=== PATIENT | female | born 1950 | race Caucasian/White ===

== ENCOUNTER → 2021-06-14 13:05 | Outpatient (BNVA) | payer MEDICARE, OTHER, SELFPAY | PROVIDERS: PCP Psychiatry & Neurology Neurology; Visit Provider Psychiatry & Neurology Neurology | DX: G25.81 Restless legs syndrome (principal); G47.61 Periodic limb movement disorder; G54.2 Cervical root disorders, not elsewhere classified | CPT/HCPCS: 99212 ==

== ENCOUNTER → 2021-10-18 14:36 | Outpatient (BNVA) | payer MEDICARE, OTHER, SELFPAY | PROVIDERS: PCP Nurse Practitioner Adult Health; Visit Provider Nurse Practitioner Family | DX: G25.81 Restless legs syndrome (principal); G47.61 Periodic limb movement disorder; Z79.899 Other long term (current) drug therapy | CPT/HCPCS: 99212 ==

== ENCOUNTER → 2021-12-20 13:58 | Outpatient (BNVA) | payer MEDICARE, OTHER, SELFPAY | PROVIDERS: PCP Nurse Practitioner Adult Health; Visit Provider Nurse Practitioner Family | DX: G25.81 Restless legs syndrome (principal); G47.61 Periodic limb movement disorder | CPT/HCPCS: 99212 ==

== ENCOUNTER → 2022-07-17 08:21 | Outpatient (BNVA) | payer MEDICARE, OTHER, SELFPAY | PROVIDERS: PCP Nurse Practitioner Adult Health; Visit Provider Psychiatry & Neurology Neurology | DX: G25.81 Restless legs syndrome (principal); G47.61 Periodic limb movement disorder | CPT/HCPCS: 99212 ==

== ENCOUNTER 2023-07-25 09:00 | Outpatient (AMB) | payer MEDICARE, OTHER, SELFPAY ==
--- NOTE | 2023-07-25 09:04 | A.OFFVIS_ITS ---
Intake Vital Signs 07/25/23 09:05 Height 5 ft 3 in Weight 115 lb 8 oz BMI 20.5 BP 116/54 L Blood Pressure Location Lt brachial Position Sitting Respiration 16 Pulse 64 Pulse Source Palpation Intake Visit Reasons: 1 year f/u Periodic limb movement-CONF Intake Note: Pt presents to the office for a one year follow up for restless legs syndrome. Mailroom Personnel Required: No Allergies No Known Allergies Allergy (Verified 07/25/23 09:05) Medication List - Last Reconciled 07/25/23 by Alize Rios MD aspirin 81 mg PO DAILY atorvastatin 40 mg PO DAILY PRN bupropion HCl (Wellbutrin SR) 150 mg PO Q12H clopidogrel 75 mg PO DAILY escitalopram oxalate 10 mg PO TID ferrous fumarate (Ferretts) 325 mg PO DAILY gabapentin mg PO TID hyoscyamine sulfate (Levsin/SL) 0.125 mg sublingual insulin glargine (Lantus U-100 Insulin) 100 units subcut QAM insulin glargine U-300 conc (Toujeo SoloStar U-300 Insulin) units subcut metformin 500 mg PO BID mirtazapine 15 mg PO BEDTIME pantoprazole 40 mg PO BID repaglinide 0 mg PO ropinirole 0.5 mg (1/2 x 1 mg) PO TID 90 days ropinirole ER 2 mg orally; 1 tab qam and 2 tabs qhs 90 days umeclidinium-vilanterol 62.5-25 mcg/actuation (Anoro Ellipta) 1 ea inhalation DAILY HPI HPI Comments History of Present Illness Details 73y/o female patient presents for follow up of RLS. Requip 0.5mg qam and qhs and XR 2mg at 4pm. she has been having falls at night when she wakes up to use the bathroom . she feels like she is not fully awake, she also eats and does not remember during night time. she has sleep talking. she reports some twitching. she reports hypersomnolence and falls related to that . [facility] Medical History (Updated 07/25/23 @ 09:29 by Alize Rios MD) Falls frequently Cervicalgia Restless legs syndrome Periodic limb movement Back pain Hyperlipidemia Diabetes Depression COPD (chronic obstructive pulmonary disease) Surgical History (Updated 07/25/23 @ 09:17 by Louisa Valladares CMA) H/O angioplasty H/O laminectomy History of carpal tunnel surgery H/O shoulder surgery History of back surgery History of cholecystectomy Family History Father Cancer Mother Cancer Social History Alcohol intake: current Alcohol intake frequency: holidays/special occasions only Patient Tobacco Use Status: Former Tobacco user Quit Date: 11/15/2020 Substance Use Type: Marijuana Review of Systems ENT Reports Normal hearing present Neuro Reports Normal hearing present Physical Exam Vital Signs: Last Vital Signs Pulse 64 07/25/23 09:05 Resp 16 07/25/23 09:05 BP 116/54 L 07/25/23 09:05 BMI result Body Mass Index 20.5 Const General: cooperative and no acute distress Nutritional Appearance: average body habitus Orientation/consciousness: patient oriented x3 Limitations: ambulation with cane Resp Effort & Inspection: normal respiratory effort and able to speak in complete sentences Neuro General: patient oriented x3 and moves all extremities Cranial nerves: Yes Normal hearing present and Yes Ability to bilaterally rotate head present Cognition (Neuro): normal cognition Gait exam (Neuro): Antalgic gait present and Assistive device used (pt uses cane) Motor exam (neuro): 5/5 motor strength present throughout Psych Appearance: grossly normal Mental Status: mental status grossly normal Assessment & Plan Assessment & Plan (1) Restless legs syndrome: Code(s): G25.81 - Restless legs syndrome (2) Periodic limb movement: Code(s): G47.61 - Periodic limb movement disorder (3) Falls frequently: Comment: due to hypersomnolence related to dopamine agonists and gabapentin Code(s): R29.6 - Repeated falls Plan Decrease ropinirole 0.5 mg qama nd XR 2mg q 4 pm I will trial her on sinemet 25/100 qhs Decrease gabapentin 300mg qhs Medications: New carbidopa-levodopa 25-100 mg (Sinemet) 1 tab PO BEDTIME 30 tabs 6RF Changed From ropinirole ER 2 mg orally; 1 tab qam and 2 tabs qhs 90 days 270 tabs 6RF To ropinirole ER 2 mg qhs 90 days 90 tabs 6RF From gabapentin PO TID To gabapentin PO BEDTIME From ropinirole 6pm, 8am and as needed in the middle of the day 0.5 mg (1/2 x 1 mg) PO TID 90 days 135 tabs 3RF To ropinirole 0.5 mg (1/2 x 1 mg) PO QAM 45 tabs 3RF 90 days Coding Level of Care Code Est Pt Level 4 (26601) Diagnoses Restless legs syndrome G25.81 Periodic limb movement G47.61 Falls frequently R29.6
[2023-07-25 09:05] VITALS: BP 116/54; PULSE 64; RESP 16; BMI 20.5
== END 2023-07-25 09:35 | disposition home or self-care (01) ==
PROVIDERS: Visit Provider Psychiatry & Neurology Neurology
DX: G25.81 Restless legs syndrome (principal); G47.61 Periodic limb movement disorder; R29.6 Repeated falls
CPT/HCPCS: 99214

== ENCOUNTER → 2023-07-25 09:00 | Outpatient (BNVA) | payer MEDICARE, OTHER, SELFPAY | PROVIDERS: Visit Provider Psychiatry & Neurology Neurology | DX: G25.81 Restless legs syndrome (principal); G47.61 Periodic limb movement disorder; R29.6 Repeated falls | CPT/HCPCS: 99212 ==

== ENCOUNTER 2023-11-05 09:56 | Outpatient (AMB) | payer MEDICARE, OTHER, SELFPAY ==
--- NOTE | 2023-11-05 10:00 | A.OFFVIS_ITS ---
Vital Signs 11/05/23 10:01 Height 5 ft 3 in Weight 115 lb BMI 20.4 BP 112/60 Blood Pressure Location Rt brachial Position Sitting Respiration 16 Pulse 68 Pulse Source Palpation Intake Visit Reasons: 2 Month F/U - LVM w/add Intake Note: Pt presents tot he office for a 4 month follow up for RLS. [employer] Required: No Allergies No Known Allergies Allergy (Verified 11/05/23 10:00) HPI Comments Details: 73y/o female patient presents for follow up of RLS. Requip 0.5mg qam and qnoon nad sinemet 25/100 qhs , gabapentin 600mg qhs No falls Denies hypersomnolence during daytime PFSH Medical History Falls frequently Cervicalgia Restless legs syndrome Periodic limb movement Back pain Hyperlipidemia Diabetes Depression COPD (chronic obstructive pulmonary disease) Surgical History History of colon resection H/O angioplasty H/O laminectomy History of carpal tunnel surgery H/O shoulder surgery History of back surgery History of cholecystectomy Family History Father Cancer Mother Cancer Social History Alcohol intake: current Alcohol intake frequency: holidays/special occasions only Patient Tobacco Use Status: Former Tobacco user Substance Use Type: Marijuana Review of Systems ENT Reports Normal hearing present Neuro Reports Normal hearing present Physical Exam Vital Signs: Last Vital Signs Pulse 68 11/05/23 10:01 Resp 16 11/05/23 10:01 BP 112/60 11/05/23 10:01 BMI result Body Mass Index 20.4 Const General: cooperative and no acute distress Nutritional Appearance: average body habitus Orientation/consciousness: patient oriented x3 Limitations: ambulation with cane Resp Effort & Inspection: normal respiratory effort and able to speak in complete sentences Neuro General: patient oriented x3 and moves all extremities Cranial nerves: Yes Normal hearing present and Yes Ability to bilaterally rotate head present Cognition (Neuro): normal cognition Gait exam (Neuro): Antalgic gait present and Assistive device used (pt uses cane) Motor exam (neuro): 5/5 motor strength present throughout Psych Appearance: grossly normal Mental Status: mental status grossly normal Assessment & Plan Assessment & Plan (1) Restless legs syndrome: Code(s): G25.81 - Restless legs syndrome Category: Medical (2) Periodic limb movement: Code(s): G47.61 - Periodic limb movement disorder Category: Medical Plan ropinirole 0.5 mg qam and q noon ( consider decreasing to 0.25 mg 1/2 tab Bid) sinemet 25/100 qhs gabapentin 600mg qhs Medications: Changed From ropinirole 0.5 mg (1/2 x 1 mg) PO QAM 90 days 45 tabs 3RF To ropinirole 0.5 mg (1/2 x 1 mg) PO BID 90 days 90 tabs 3RF Discontinued ropinirole ER Discontinued Reason: Patient no longer taking 2 mg qhs 90 days 90 tabs 6RF Coding Level of Care Code Est Pt Level 4 (24252) Diagnoses Restless legs syndrome G25.81 Periodic limb movement G47.61
[2023-11-05 10:01] VITALS: BP 112/60; PULSE 68; RESP 16; BMI 20.4
== END 2023-11-05 10:29 | disposition home or self-care (01) ==
PROVIDERS: PCP Internal Medicine; Visit Provider Psychiatry & Neurology Neurology
DX: G25.81 Restless legs syndrome (principal); G47.61 Periodic limb movement disorder
CPT/HCPCS: 99214

== ENCOUNTER → 2023-11-05 09:56 | Outpatient (BNVA) | payer MEDICARE, OTHER, SELFPAY | PROVIDERS: PCP Internal Medicine; Visit Provider Psychiatry & Neurology Neurology | DX: G25.81 Restless legs syndrome (principal); G47.61 Periodic limb movement disorder; R29.6 Repeated falls | CPT/HCPCS: 99212 ==

== ENCOUNTER → 2024-04-06 13:55 | Outpatient (REF) | payer MEDICARE, OTHER, SELFPAY | LOC: HO.SL 13:55 | PROVIDERS: PCP Internal Medicine; Visit Provider Psychiatry & Neurology Neurology | DX: R06.83 Snoring (principal); G47.10 Hypersomnia, unspecified | CPT/HCPCS: 95806 ==

== ENCOUNTER → 2024-04-06 14:23 | Outpatient (BNV) | payer MEDICARE, OTHER, SELFPAY | PROVIDERS: PCP Internal Medicine; Visit Provider Psychiatry & Neurology Neurology | DX: R06.83 Snoring (principal); G47.10 Hypersomnia, unspecified | CPT/HCPCS: 95806 ==

== ENCOUNTER → 2024-06-02 20:30 | Outpatient (REF) | payer MEDICARE, OTHER, SELFPAY ==
--- OUTSIDE RECORDS SUMMARY | 2024-06-02 22:55 | XMS_ITS ---
Author Organization [facility] Address [address] [facility] [address] [place] [address] Care Team Providers Care Administrative Liaison Name Role Phone El Bor[place]o Primary Care Provider ZAHRA Rose Unavailable [phone] Allergies Allergen (clinical drug ingredient) Drug/Non Drug Allergy documented on EMR Reaction Allergy Type Onset Date Status codeine Codeine Sulfate Unknown Drug Allergy A ctive REASON FOR VISIT Bump on the Lt foot red/swollen and deeply cracked heels ready to bleed. Medications Medication SIG (Take, Route, Frequency, Duration) Notes Start Date End Date Status Doxycycline Monohydrate 100 MG 1 tablet Orally Twice a day for 14 days 01/13/2021 Not-Taking Doxycycline Monohydrate 100 MG 1 tablet Orally twice a day for 10 days 01/04/2023 Active Diclofenac Sodium 1 % 1 gm to the left 3 rd toe and plantar heels Externally two to four times a day for 30 days 01/04/2023 Active Aquaphor - apply to cracks on heels Externally one to two times a day for 30 days 01/04/2023 Active Lidocaine 4 % 1 application as needed Externally Three times a day for 14 days 10/12/2020 Not-Taking buPROPion HCl ER (XL) 150 MG 1 tablet in the morning Orally bid Active Atorvastatin Calcium 10 MG 1 tablet Orally Once a day Active Urea 20 % 1 application as needed to the right heel Externally Once a day for 30 days 10/04/2020 Not-Taking Aspirin 81 MG 1 tablet Orally Once a day Active Carbidopa-Levodopa 25-100 MG 1 tablet Orally Once a day Not-Taking Multivitamin Active metFORMIN HCl 500 MG 1 tablet with a eyad l Orally bid Active Lantus 100 UNIT/ML as directed Subcutaneous 18 units qhs Active Lexapro 10 MG 1 tablet Orally bid Active Vitamin D3 50 MCG (1999 UT) 1 tablet Orally Once a day Active Gabapentin 800 MG 1 tablet Orally Once a day 900MG Active rOPINIRole HCl 1 MG 1 tablet 1 to 3 hours before bedtime Orally 2 tab at night Active Pantoprazole Sodium 40 MG 1 tablet Orally Twice a day Active LORazepam Active rOPINIRole HCl ER 2 MG 1 tablet Orally Once a day Active ZyrTEC Allergy 10 MG 1 tablet Orally Onc e a day Active Problems Problem Type SNOMED Code ICD Code Onset Dates Problem Status W/U Status Risk Notes Problem 496194819 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 confirmed Vital Signs Weight 113.8 lbs 01/04/2023 Height 5ft 3in in 01/04/2023 BMI 20.16 kg/m2 01/04/2023 Heart Rate 63 /min 01/04/2023 Temperature 97.0 degrees Fahrenheit 01/05/20 23 Respiratory Rate 16 /min 01/04/2023 Encounters Encounter Location Date Provider Diagnosis [facility] [address] [facility] [address] [place] [address] 01/04/2023 ZAHRA RICHARDSON Onychia and paronychia of toe L03.039 ; Dactylitis due to spondyloarthritic disorder M46.90 and Fissure in skin of both feet R23.4 Assessments Encounter Date Diagnosis (ICD Code) Assessment Notes Treatment Notes Treatment Clinical Notes Section Notes 01/04/2023 Onychia and paronychia of toe (ICD-10 - L03.039) This is an outpatient visit for evaluation and management of an established patient with new issues, which required appropriate review of pertinent medical history, review of any previous imaging, review of all previous records, and examination and decision-making . Time was 30 minutes spent in review of all these facets including face to face discussion with the patient regarding my findings and in discussion of a current and future treatment plan. I recommended x-rays of the left 3rd toe. The patient refused. We discussed that she either has a retronychia or dactylitis of the toe. She has no fluctuance of the toe. I recommended we treat for both issues. RX for doxycycline 100 mg PO BID x 10 days sent to the patient's pharmacy. I reviewed side effects of the antibiotic. I also discussed dactylitis. She has similar problems with her hands. She has had surgery and injections in her hands in the past. She cannot take oral NSAIDs. SHe did not want an injection today. RX for diclofenac gel to apply to the left 3rd toe BID x 30 days. 01/04/2023 Dactylitis due to spondyloarthritic disorder (ICD-10 - M46.90) I explained her heel pain is due to compensation from the pain caused by her heel fissures. We discussed that There is inflammation in this area as well. I recommended she applies the diclofenac gel to the heels twice daily. I also recommended stretching exercises for the plantar fascia. I told the patient to avoid barefoot walking. 01/04/2023 Fissure in skin of both feet (ICD-10 - R23.4) We discussed the fissures form from dry skin caused by her poor circulation and the neuropathy. She is on gabapentin for the neuropathy. She had an ultrasound and is scheduled to follow up with Dr. Powell next week. I recommended a moitsurizer barrier cream instead of the keratolytic urea cream. RX Aquaphor ointment to apply to both heels daily until healed. She is in agreement with this plan. Plan Of Treatment Medication Medication Name Sig Start Date Stop Date Notes Doxycycline Monohydrate 100 MG 1 tablet Orally twice a day for 10 days 01/04/2023 Diclofenac Sodium 1 % 1 gm to the left 3 rd toe and plantar heels Externally two to four times a day for 30 days 01/04/2023 Aquaphor - apply to cracks on h eels Externally one to two times a day for 30 days 01/04/2023 Treatment Notes Assessment Notes Onychia and paronychia of toe This is an outpatient visit for evaluation and management of an established patient with new issues, which required appropriate review of pertinent medical history, review of any previous imaging, review of all previous records, and examination and decision-making. Time was 30 minutes spent in review of all these facets including face to face discussion with the patient regarding my findings and in discussion of a current and future treatment plan. I recommended x-rays of the left 3rd toe. The patient refused. We discussed that she either has a retronychia or dactylitis of the toe. She has no fluctuance of the toe. I recommended we treat for both issues. RX for doxycycline 100 mg PO BID x 10 days sent to the patient's pharmacy. I reviewed side effects of the antibiotic. I also discussed dactylitis. She has similar problems with her hands. She has had surgery and injections in her hands in the past. She cannot take oral NSAIDs. SHe did not want an injection today. RX for diclofenac gel to apply to the left 3rd toe BID x 30 days. Dactylitis due to spondyloarthritic diso rder I explained her heel pain is due to compensation from the pain caused by her heel fissures. We discussed that There is inflammation in this area as well. I recommended she applies the diclofenac gel to the heels twice daily. I also recommended stretching exercises for the plantar fascia. I told the patient to avoid barefoot walking. Fissure in skin of both feet We discusse d the fissures form from dry skin caused by her poor circulation and the neuropathy. She is on gabapentin for the neuropathy. She had an ultrasound and is scheduled to follow up with Dr. Powell next week. I recommended a moitsurizer barrier cream instead of the keratolytic urea cream. RX Aquaphor ointment to apply to both heels daily until healed. She is in agreement with this plan. Next Appt Details Follow Up: prn, Reason: Progress Notes * Meek VALLEShanaOB:1950 (72 yo F)Acc No.[id number]:01/04/2023 Progress Notes Patient:?Tiarra Valle Provider:?Zahra Richardson DPM :1950???Age:72 Y???Sex:Female D ate:01/04/2023 Address:[address] [place] [address] , [place], [id number] Pcp:El Borrego Subjective: * Chief Complaints: * ???Bump on the Lt foot red/s wollen and deeply cracked heels ready to bleed. * HPI: ???Constitutional:? This 72 y/o female returns to my office with a complaint of a painful red swollen left 3rd toe, painful cracks in the heels, and bilateral heel pain. She states the toe issue started about 3 weeks ago. She denies any trauma or injury to the toe. She states it is very painful to the touch, and she cannot wear closed toed shoes. She denies any drainage from the toe. She states the redness has stayed localized to the toe. She was also diagnosed with peripheral neuropathy and cannot tolerate certain shoes. She states the cracks in her heels have been getting worse. She was using the urea ointment without improvement. She also used Neosporin on the area which seemed to help more. She states the heels have been painful when walking. She has not tried anything for this issue. She has no other foot complaints this visit. * ROS:?GENERAL: Pt denies nausea, fever, vomiting, chills, or shortness of breath. Pt in NAD. ALLERGY: patient denies any new allergy HEME/ONC: patient denies any bleeding or clotting disorders CARDIOLOGY: pt denies chest pain, palpitations LUNGS: pt denies shortness of breath ABDOMEN: patient denies any bloating, abdominal pain, or swelling MUSCULOSKELETAL: See HPI, hand and leg pain SKIN: see HPI, otherwise no lesions, rash or itching NEURO: No persistent headache, patient has bilateral peripheral neuropathy PSYCH: patient denies any current anxiety or depression The remainder of the review of systems is noncontributory. * Medical History:? * Surgical History:?gastric by pass- no NSAIDS back surgery right shoulder surgery gallbladder sugery carpal tunnel surgery right hip replacement left achilles tendon repair neck fusion * Hospitalization/Major Diagno stic Procedure:? (boy) 1988vaginal delivery (girl) 1989gastric bypass back surgery right hip replacement cholecystectomy * Family History:?1 son(s) , 1 daughter(s) . .? family history of diabetes and cancer. * Social History:?Tobacco: no Alcohol: rarely smokes marijuana. * Medications:?TakingZyrTEC Al lergy 10 MG Tablet 1 tablet Orally Once a day Gabapentin 800 MG Tablet 1 tablet Orally Once a day , Notes to Pharmacist: 900MGLORazepam rOPINIRole HCl ER 2 MG Tablet Extended Release 24 Hour 1 tablet Orally Once a day rOPINIRole HCl 1 MG Tablet 1 tablet 1 to 3 hours before bedtime Orally 2 tab at night Pantoprazole Sodium 40 MG Tablet Delayed Release 1 tablet Orally Twice a day Multivitamin metFORMIN HCl 500 MG Tablet 1 tablet with a meal Orally bid Lantus 100 UNIT/ML Solution as directed Subcutaneous , Notes to Pharmacist: 18 units qhsLexapro 10 MG Tablet 1 tablet Orally bid Vitamin D3 50 MCG (2000 UT) Tablet 1 tablet Orally Once a day buPROPion HCl ER (XL) 150 MG Tablet Extended Release 24 Hour 1 tablet in the morning Orally bid Atorvastatin Calcium 10 MG Tablet 1 tablet Orally Once a day Aspirin 81 MG Tablet Delayed Release 1 tablet Orally Once a day Taking ZyrTEC Allergy 10 MG Tablet 1 tablet Orally Once a day Taking Gabapentin 800 MG Tablet 1 tablet Orally Once a day , Notes to Pharmacist: 900MGTaking LORazepam Taking rOPINIRole HCl ER 2 MG Tablet Extended Release 24 Hour 1 tablet Orally Once a day Taking rOPINIRole HCl 1 MG Tablet 1 tablet 1 to 3 hours before bedtime Orally 2 tab at night Taking Pantoprazole Sodium 40 MG Tablet Delayed Release 1 tablet Orally Twice a day Taking Multivitamin Taking metFORMIN HCl 500 MG Tablet 1 tablet with a meal Orally bid Taking Lantus 100 UNIT/ML Solution as directed Subcutaneous , Notes to Pharmacist: 18 units qhsTaking Lexapro 10 MG Tablet 1 tablet Orally bid Taking Vitamin D3 50 MCG (2000 UT) Tablet 1 tablet Orally Once a day Taking buPROPion HCl ER (XL) 150 MG Tablet Extended Release 24 Hour 1 tablet in the morning Orally bid Taking Atorvastatin Calcium 10 MG Tablet 1 tablet Orally Once a day Taking Aspirin 81 MG Tablet Delayed Release 1 tablet Orally Once a day Pfa-MsuvmeHczdlftof-Eqhvftzk 25-100 MG Tablet 1 tablet Orally Once a day Urea 20 % Cream 1 application as needed to the right heel Externally Once a day Lidocaine 4 % Cream 1 application as needed Externally Three times a day Doxycycline Monohydrate 100 MG Tablet 1 tablet Orally Twice a day Medication List reviewed and reconciled with the patientNot-Taking Carbidopa-Levodopa 25-100 MG Tablet 1 tablet Orally Once a day Not-Taking Urea 20 % Cream 1 application as needed to the right heel Externally Once a day Not-Taking Lidocaine 4 % Cream 1 application as needed Externally Three times a day Not- Taking Doxycycline Monohydrate 100 MG Tablet 1 tablet Orally Twice a day Medication List reviewed and reconciled with the patient * Allergies:?Codeine Sulfateno [Allergies Verified] Objective: * Vitals:?Wt:113.8lbs, Ht: 5ft 3in, BMI:20.16Index, HR:63/min, Temp:97.0F, RR:16/min, Ht-cm: 160.02, Wt-k.62 kg. * Examination: ???General Examination: ???GENERAL: Patient appears well nourished, with NAD. ?VASCULAR: Dorsalis pedis pulses are 1/4 bilaterally and Posterior tibial pulses are 1/4 bilaterally. Capillary filling time within normal limits the digits. No pallor on elevation or rubor on dependency. No hair growth. Each foot temperature is within normal limits. ?NEUROLOGICAL: Sharp/dull sensation intact left, diminished right, protective sensation intact 10/10 with 5.07 [place] Teodoro left, 5/10 right, vibratory sensation with tuning fork diminished to the tibial tuberosity bilaterally, position sense intact left to the tibial tuberosity, diminished right. ?ORTHOPEDIC: Good muscle strength 4+/5 of all flexors and extensors left, 4/5 right. Dorsi flexion of ankle ,0 degrees, plantar flexion WNL. No muscle atrophy. Pain on palpation and ROM of the distal interphalangeal joint of the left 3rd toe. Pain on heel compression and on palpation of the plantar aspect bilaterally. ?DERMATOLOGICAL: Hyperkeratosis lateral plantar right and left heel with shallow fissures. Edema and erythema of the proximal nail bed of the left 3rd toe without any drainage, acute pain on palpation. Normal skin temperature, normal skin turgor. ?SHOES: sandals. Assessment: * Assessment: 1.?Onychia and paronychia of toe - L03.039 (Primary)?2.?Dactylitis due to spondyloarthritic disorder - M46.90?3.?Fissure in skin of both feet - R23.4? Plan: * Treatment: 2.?Dactylitis due to spondyl oarthritic disorder? Start Diclofenac Sodium Gel, 1 %, 1 gm to the left 3rd toe and plantar heels, Externally, two to four times a day, 30 days, 60, Refills 2.?? Notes: I explained her heel pain is due to compensation from the pain caused by her heel fissures. We discussed that There is inflammation in this area as well. I recommended she applies the diclofenac gel to the heels twice daily. I also recommended stretching exercises for the plantar fascia. I told the patient to avoid barefoot walking.?? 3.?Fissure in skin of both f eet? Start Aquaphor Ointment, -, apply to cracks on heels, Externally, one to two times a day, 30 days, 60, Refills 2.?? Notes: We discussed the fissures form from dry skin caused by her poor circulation and the neuropathy. She is on gabapentin for the neuropathy. She had an ultrasound and is scheduled to follow up with Dr. Powell next week. I recommended a moitsurizer barrier cream instead of the keratolytic urea cream. RX Aquaphor ointment to apply to both heels daily until healed. She is in agreement with this plan.?? * Procedure Codes:? * Follow Up:?prn * Billing Information: * Visit Code:? 55789 Office Visit, Est Pt., Level 4. * Procedure Codes:? * Sign off status: Completed true * Provider:?Zahra Richardson DPM Date:? 01/04/2023 Generated for Karen nicholson/Saray/Reese on:?06/02/2024 10:54 PM EST History and Physical Notes * HPI (History of Present Illness) Category Sub-Category Detail Notes Category Not es Constitutional This 72 y/o f sam returns to my office with a complaint of a painful red swollen left 3rd toe, painful cracks in the heels, and bilateral heel pain. She states the toe issue started about 3 weeks ago. She denies any trauma or injury to the toe. She states it is very painful to the touch, and she cannot wear closed toed shoes. She denies any drainage from the toe. She states the redness has stayed localized to the toe. She was also diagnosed with peripheral neuropathy and cannot tolerate certain shoes. She states the cracks in her heels have been getting worse. She was using the urea ointment without improvement. She also used Neosporin on the area which seemed to help more. She states the heels have been painful when walking. She has not tried anything for this issue. She has no other foot complaints this visit. Examination Category Sub-Category Detail Notes Category Not es General Examination GENERAL: Patient appears well nourished, with NAD. VASCULAR: Dorsalis pedis pulses are 1/4 bilaterally and Posterior tibial pulses are 1/4 bilaterally. Capillary filling time within normal limits the digits. No pallor on elevation or rubor on dependency. No hair growth. Each foot temperature is within normal limits. NEUROLOGICAL: Sharp/dull sensation intact left, diminished right, protective sensation intact 10/10 with 5.07 [place] Teodoro left, 5/10 right, vibratory sensation with tuning fork diminished to the tibial tuberosity bilaterally, position sense intact left to the tibial tuberosity, diminished right. ORTHOPEDIC: Good muscle strength 4+/5 of all flexors and extensors left, 4/5 right. Dorsi flexion of ankle ,0 degrees, plantar flexion WNL. No muscle atrophy. Pain on palpation and ROM of the distal interphalangeal joint of the left 3rd toe. Pain on heel compression and on palpation of the plantar aspect bilaterally. DERMATOLOGICAL: Hyperkeratosis lateral plantar right and left heel with shallow fissures. Edema and erythema of the proximal nail bed of the left 3rd toe without any drainage, acute pain on palpation. Normal skin temperature, normal skin turgor. SHOES: sandals"
--- OUTSIDE RECORDS SUMMARY | 2024-06-02 22:55 | XMS_ITS | Clinical Summary ---
Author Organization Unknown Care Team Providers Care Director Translational Name Role Phone KAMINI TRIMMER TAILER, COLEMAN Unavailable Unavailab franko COYNE PT, MICHAEL Unavailable Unavailable SPAFFORD OT, TEJINDER Unavailable Unavailable Payers Payer Name Policy Type Policy Number Effective Date Expira tion Date MEDICARE.NGS.PDGM [id number] Problems Condition Name Condition Details Condition Category Status Onset Date Resolution Date Last Treatment Date Treating Clinician Comments ENCOUNTER FOR OTHER ORTHOPEDIC AFTERCARE Active 2020-05 00:00: 00 ARTHRODESIS STATUS Active 2020-05 00:00: 00 SPINAL STENOSIS, CERVICAL REGION Active 2020-05 00:00: 00 ESSENTIAL (PRIMARY) HYPERTENSION Active 05-27 00:00: 00 TYPE 2 DIABETES MELLITUS WITHOUT COMPLICATION S Active 05-27 00:00: 00 LONGTERM (CURRENT) USE OF INSULIN Active 05-27 00:00: 00 SU[employer]OR [employer] (CURRENT) USE OF ORAL HYPOGLYCEMIC DRUGS Active 05-27 00:00: 00 LONGTERM (CURRENT) USE OF ANTITHROMBOT ICS/ANTIPLAT ELETS Active 05-27 00:00: 00 Allergies, Adverse Reactions, Alerts Allergy Name Allergy Type Status Severity Reaction(s) Onset Date Inactive Date Treating Clinician Comments NO KNOWN ALLERGIES Propensity to adverse reactions Active 2020-05 11:16: 58 Medications Ordered Medication Name Filled Medication Name Start Date Stop Date Current Medication? Ordering Clinician Indication Dosage Frequency Signature (SIG) Comments Components urea 20 % topical cream 02-08 00:00: 00 Yes [id number] DIRECTED Per instruc tions NEEDED HEEL ONCE A DAY Per instructio ns NEEDED HEEL ONCE A DAY (route: topical) Med Classific ation: Dermatolo gical pantoprazol e 40 mg tablet,anette yed release 02-15 00:00: 00 Yes [id number] DIRECTED Per instruc tions TWICE DAILY Per instructio ns TWICE DAILY (route: oral) Med Classific ation: Gastroint estinal Therapy Agents escitalopra m 10 mg tablet 9-08 00:00: 00 Yes [id number] DIRECTED Per instruc tions DAILY Per instructio ns DAILY (route: oral) Med Classific ation: Central Nervous System Agents ropinirole ER 4 mg tablet,exte nded release 24 hr 2020-05 0-06 00:00: 00 Yes [id number] DIRECTED Per instruc tions DAILY Per instructio ns DAILY (route: oral) Med Classific ation: Central Nervous System Agents metformin 500 mg tablet 8-06 00:00: 00 Yes [id number] DIRECTED Per instruc tions 2 TIMES DAILY Per instructio ns 2 TIMES DAILY (route: oral) Med Classific ation: Endocrine atorvastati n 10 mg tablet 8-16 00:00: 00 Yes [id number] DIRECTED Per instruc tions DAILY Per instructio ns DAILY (route: oral) Med Classific ation: Cardiovas cular Therapy Agents bupropion HCl SR 150 mg tablet,12 hr sustained-r elease 7-21 00:00: 00 Yes [id number] DIRECTED Per instruc tions DAILY Per instructio ns DAILY (route: oral) Med Classific ation: Central Nervous System Agents gabapentin 300 mg capsule 2020-05 0-05 00:00: 00 Yes [id number] DIRECTED Per instruc tions TWICE DAILY EVERY NIGHT AT BEDTIME Per instructio ns TWICE DAILY EVERY NIGHT AT BEDTIME (route: oral) Med Classific ation: Central Nervous System Agents amoxicillin 500 mg capsule 2020-05 0-05 00:00: 00 Yes [id number] DIRECTED Per instruc tions DAILY Per instructio ns DAILY (route: oral) Med Classific ation: Anti-Infe ctive Agents clopidogrel 75 mg tablet 9-15 00:00: 00 Yes [id number] DIRECTED Per instruc tions EVERY DAY Per instructio ns EVERY DAY (route: oral) Med Classific ation: Hematolog ical Agents Lantus Solostar U-100 Insulin 100 unit/mL (3 mL) subcutaneou s pen 01-12 00:00: 00 Yes [id number] DIRECTED Per instruc tions DAILY Per instructio ns DAILY (route: subcutaneo us) Med Classific ation: Endocrine Neupro 2 mg/24 hour transdermal 24 hour patch 2020-05 005 00:00: 00 Yes [id number] DIRECTED Per instruc tions ONCE DAILY Per instructio ns ONCE DAILY (route: transderma l) Med Classific ation: Central Nervous System Agents BD Maylin 2nd Gen Pen Needle 32 gauge x /32 01-26 00:00: 00 Yes [id number] DIRECTED Per instruc tions ONCE DAILY Per instructio ns ONCE DAILY (route: miscellane ous) Med Classific ation: Medical Supplies and Durable Medical Equipment (DME) Vital Signs Vital Name Observation Time Observation Value Commen ts Temperature 2021-05-08 07:36:00.000 97.5 [degF] Temperature 2021-05-05 09:40:00.000 97.9 [degF] Temperature 2021-04-26 14:40:00.000 97.1 [degF] Temperature 2021-04-26 09:29:00.000 98.6 [degF] Temperature 2021-04-19 13:06:00.000 97.3 [degF] Temperature 2021-04-17 08:21:00.000 97.9 [degF] Temperature 2021-04-12 11:09:00.000 97.5 [degF] Temperature 2021-04-11 09:35:00.000 97.8 [degF] Temperature 2021-04-06 15:57:00.000 97.2 [degF] Temperature 2021-04-05 11:49:00.000 98.2 [degF] Temperature 2021-03-29 07:38:00.000 97.7 [degF] Temperature 2021-03-28 12:55:00.000 97.4 [degF] Temperature 2021-03-27 10:48:00.000 97.5 [degF] Height 2021-03-27 10:48:00.000 63 [in_us] Pulse 2021-05-08 07:36:00.000 77 /min Pulse 2021-05-05 09:40:00.000 81 /min Pulse 2021-04-26 14:40:00.000 80 /min Pulse 2021-04-26 09:29:00.000 75 /min Pulse 2021-04-19 13:06:00.000 76 /min Pulse 2021-04-17 08:21:00.000 80 /min Pulse 2021-04-12 11:09:00.000 75 /min Pulse 2021-04-11 09:35:00.000 86 /min Pulse 2021-04-06 15:57:00.000 76 /min Pulse 2021-04-05 11:49:00.000 72 /min Pulse 2021-03-29 07:38:00.000 70 /min Pulse 2021-03-28 12:55:00.000 70 /min Pulse 2021-03-27 10:48:00.000 68 /min O2 Saturation (%) 2021-05-08 07:36:00.000 97 % O2 Saturation (%) 2021-04-19 13:06:00.000 97 % O2 Saturation (%) 2021-04-17 08:21:00.000 97 % O2 Saturation (%) 2021-04-12 11:09:00.000 97 % O2 Saturation (%) 2021-04-06 15:57:00.000 98 % O2 Saturation (%) 2021-03-29 07:38:00.000 97 % O2 Saturation (%) 2021-03-28 12:55:00.000 98 % Respirations 2021-05-08 07:36:00.000 16 /min Respirations 2021-05-05 09:40:00.000 18 /min Respirations 2021-04-26 14:40:00.000 18 /min Respirations 2021-04-26 09:29:00.000 18 /min Respirations 2021-04-19 13:06:00.000 18 /min Respirations 2021-04-17 08:21:00.000 18 /min Respirations 2021-04-12 11:09:00.000 18 /min Respirations 2021-04-11 09:35:00.000 18 /min Respirations 2021-04-06 15:57:00.000 18 /min Respirations 2021-04-05 11:49:00.000 18 /min Respirations 2021-03-29 07:38:00.000 18 /min Respirations 2021-03-28 12:55:00.000 16 /min Respirations 2021-03-27 10:48:00.000 18 /min Weight (lbs) 2021-03-27 10:48:00.000 161 [lb_av] Systolic Blood Pressure 2021-05-08 07:36:00.000 130 mm [Hg] Systolic Blood Pressure 2021-05-05 09:40:00.000 136 mm [Hg] Systolic Blood Pressure 2021-04-26 14:40:00.000 128 mm [Hg] Systolic Blood Pressure 2021-04-26 09:29:00.000 128 mm [Hg] Systolic Blood Pressure 2021-04-19 13:06:00.000 130 mm [Hg] Systolic Blood Pressure 2021-04-17 08:21:00.000 114 mm [Hg] Systolic Blood Pressure 2021-04-12 11:09:00.000 112 mm [Hg] Systolic Blood Pressure 2021-04-11 09:35:00.000 104 mm [Hg] Systolic Blood Pressure 2021-04-06 15:57:00.000 130 mm [Hg] Systolic Blood Pressure 2021-04-05 11:49:00.000 116 mm [Hg] Systolic Blood Pressure 2021-03-29 07:38:00.000 134 mm [Hg] Systolic Blood Pressure 2021-03-28 12:55:00.000 125 mm [Hg] Systolic Blood Pressure 2021-03-27 10:48:00.000 130 mm [Hg] Diastolic Blood Pressure 2021-05-08 07:36:00.000 70 mm [Hg] Diastolic Blood Pressure 2021-05-05 09:40:00.000 74 mm [Hg] Diastolic Blood Pressure 2021-04-26 14:40:00.000 68 mm [Hg] Diastolic Blood Pressure 2021-04-26 09:29:00.000 62 mm [Hg] Diastolic Blood Pressure 2021-04-19 13:06:00.000 72 mm [Hg] Diastolic Blood Pressure 2021-04-17 08:21:00.000 66 mm [Hg] Diastolic Blood Pressure 2021-04-12 11:09:00.000 60 mm [Hg] Diastolic Blood Pressure 2021-04-11 09:35:00.000 52 mm [Hg] Diastolic Blood Pressure 2021-04-06 15:57:00.000 68 mm [Hg] Diastolic Blood Pressure 2021-04-05 11:49:00.000 56 mm [Hg] Diastolic Blood Pressure 2021-03-29 07:38:00.000 62 mm [Hg] Diastolic Blood Pressure 2021-03-28 12:55:00.000 60 mm [Hg] Diastolic Blood Pressure 2021-03-27 10:48:00.000 64 mm [Hg] Plan of Treatment Planned Activity Planned Date Details Comments Future Scheduled Test AGENCY MAY PERFORM A RESUMPTION OF CARE VISIT FOLLOWING ANY HOSPITAL ADMISSION. PHYSICAL THERAPY TO EVALUATE, ASSESS AND MONITOR, PROVIDE SKILLED THERAPEUTIC INTERVENTION, ACTIVITY, EDUCATION, AND TRAINING TO ADDRESS: [code = AGENCY MAY PERFORM A RESUMPTION OF CARE VISIT FOLLOWING ANY HOSPITAL ADMISSION. PHYSICAL THERAPY TO EVALUATE, ASSESS AND MONITOR, PROVIDE SKILLED THERAPEUTIC INTERVENTION, ACTIVITY, EDUCATION, AND TRAINING TO ADDRESS:] Future Scheduled Test TRANSFER T RAINING (PT) [code = TRANSFER TRAINING (PT)] Future Scheduled Test GAIT TRAIN ING (PT) [code = GAIT TRAINING (PT)] Future Scheduled Test NEUROMUSCU LAR RE-EDUCATION / BALANCE RETRAINING (PT) [code = NEUROMUSCULAR RE-EDUCATION / BALANCE RETRAINING (PT)] Future Scheduled Test THERAPEUTI C EXERCISES (PT) [code = THERAPEUTIC EXERCISES (PT)] Future Scheduled Test ENERGY CON SERVATION (PT) [code = ENERGY CONSERVATION (PT)] Future Scheduled Test ORTHOPEDIC SURGICAL AFTERCARE (PT) MAY TEACH PATIENT APPLICATION OF CRYOTHERAPY FOR PAIN AND/OR SWELLING UP TO 20 MIN AT A TIME OVER INCISION/JOINT [code = ORTHOPEDIC SURGICAL AFTERCARE (PT) MAY TEACH PATIENT APPLICATION OF CRYOTHERAPY FOR PAIN AND/OR SWELLING UP TO 20 MIN AT A TIME OVER INCISION/JOINT] Future Scheduled Test CERVICAL S PINE LAMINECTOMY / FUSION SELF-MANAGEMENT (PT) [code = CERVICAL SPINE LAMINECTOMY / FUSION SELF-MANAGEMENT (PT)] Future Scheduled Test IDENTIFY F ALL RISK FACTORS AND ESTABLISH HOME EXERCISE PROGRAM TO MINIMIZE FALL RISK (PT) [code = IDENTIFY FALL RISK FACTORS AND ESTABLISH HOME EXERCISE PROGRAM TO MINIMIZE FALL RISK (PT)] Future Scheduled Test PAIN MANAG EMENT (PT) [code = PAIN MANAGEMENT (PT)] Future Scheduled Test PHYSICAL T HERAPY TO INSTRUCT PATIENT/CAREGIVER ON RISK FOR HOSPITALIZATION, TEACH SIGNS AND SYMPTOMS THAT PUT PATIENT AT RISK, WHEN TO NOTIFY CLINICIAN OF COMPLICATIONS/DECLINE, AND WHEN TO CALL 911. PHYSICAL THERAPY TO INSTRUCT PATIENT/CAREGIVER ON: SIGNS AND SYMPTOMS TO BE ON ALERT FOR EARLY INTERVENTION, PRIOR TO NEEDING EMERGENCY SERVICES CALL US FIRST TO KEEP PRE PRESS OPERATOR SYMPTOM REPORT FOR VISIBLE REFERENCE NOTIFY CLINICIAN/PHYSICIAN FOR DECLINE IN STATUS WHEN AND HOW TO CALL HOME HEALTH AGENCY FACILITATE PHYSICIAN FOLLOW UP APPOINTMENT IDENTIFY SOCIOECONOMIC CONCERNS AND MAKE APPROPRIATE REFERRAL NEEDED [code = PHYSICAL THERAPY TO INSTRUCT PATIENT/CAREGIVER ON RISK FOR HOSPITALIZATION, TEACH SIGNS AND SYMPTOMS THAT PUT PATIENT AT RISK, WHEN TO NOTIFY CLINICIAN OF COMPLICATIONS/DECLINE, AND WHEN TO CALL 911. PHYSICAL THERAPY TO INSTRUCT PATIENT/CAREGIVER ON: SIGNS AND SYMPTOMS TO BE ON ALERT FOR EARLY INTERVENTION, PRIOR TO NEEDING EMERGENCY SERVICES CALL US FIRST TO KEEP PRE PRESS OPERATOR SYMPTOM REPORT FOR VISIBLE REFERENCE NOTIFY CLINICIAN/PHYSICIAN FOR DECLINE IN STATUS WHEN AND HOW TO CALL HOME HEALTH AGENCY FACILITATE PHYSICIAN FOLLOW UP APPOINTMENT IDENTIFY SOCIOECONOMIC CONCERNS AND MAKE APPROPRIATE REFERRAL NEEDED] Future Scheduled Test AGENCY MAY PERFORM A RESUMPTION OF CARE VISIT FOLLOWING ANY HOSPITAL ADMISSION. OCCUPATIONAL THERAPY TO EVALUATE, ASSESS, AND MONITOR, PROVIDE SKILLED THERAPEUTIC INTERVENTION, ACTIVITY, EDUCATION, AND TRAINING TO ADDRESS; BATHING/SHOWERING (OT) TOILETING (OT) DRESSING (OT) MODIFIED NEIL INDEX (OT) MEAL PREPARATION AND CLEANUP (OT) [code = AGENCY MAY PERFORM A RESUMPTION OF CARE VISIT FOLLOWING ANY HOSPITAL ADMISSION. OCCUPATIONAL THERAPY TO EVALUATE, ASSESS, AND MONITOR, PROVIDE SKILLED THERAPEUTIC INTERVENTION, ACTIVITY, EDUCATION, AND TRAINING TO ADDRESS; BATHING/SHOWERING (OT) TOILETING (OT) DRESSING (OT) MODIFIED NEIL INDEX (OT) MEAL PREPARATION AND CLEANUP (OT)] Goal 2021-05-08 Patient Goal - I WANT TO WA LK PAIN FREE Goal Provider Goal - Goal Provider Goal - PATIENT WILL DEMO INDEP PERFORMANCE OF HOUSEHOLD TRANSFERS WITH FWW USE IN 4 WEEKS AND WITH SPC USE IN 8 WEEKS TO PROMOTE IMPROVED FUNCTIONAL MOBILITY Goal Provider Goal - PATIENT WILL DEMO INDEP PERFORMANCE OF HOUSEHOLD GAIT WITH FWW USE IN 4 WEEKS AND WITH SPC USE INCLUDING STAIRS IN 8 WEEKS TO ALLOW SAFE NAVIGATION THROUGHOUT HOME ENVIRONMENT Goal Provider Goal - PATIENT WILL DEMO IMPROVED TUG SCORE TO 44 SECONDS AND 19 TINETTI SCORE IN 8 WEEKS TO PROMOTE IMPROVED BALANCE INPUT INTEGRATION Goal Provider Goal - Goal Provider Goal - PATIENT WILL DEMO INDEP USE OF PACING AND BREATHING TECHNIQUES FOR CONDITION MANAGEMENT IN 4 WEEKS Goal Provider Goal - PATIENT WILL DEMONSTRATE NORMAL HEALING FOLLOWING SURGERY WITH NO COMPLICATIONS BY DISCHARGE. Goal Provider Goal - PT GOAL: PATIENT WILL DEMONSTRATE OPTIMAL OUTCOMES INCLUDING DECREASED PAIN WITH NO COMPLICATIONS FOLLOWING CERVICAL SPINE LAMINECTOMY / FUSION BY DISCHARGE. Goal Provider Goal - PATIENT/CAREGIVER WILL DEMONSTRATE ADHERENCE TO FALL REDUCTION SELF MANAGEMENT TO MINIMIZE FALL RISK BY DISCHARGE. Goal Provider Goal - PT GOAL: PATIENT/CAREGIVER WILL VERBALIZE UNDERSTANDING OF PAIN MANAGEMENT BY DISCHARGE. Goal Provider Goal - PATIENT/CAREGIVER WILL VERBALIZE UNDERSTANDING OF SIGNS AND SYMPTOMS THAT PUT THE PATIENT AT RISK FOR HOSPITALIZATION, WHEN TO NOTIFY THERAPIST/NURSE OF COMPLICATIONS/DECLINE AND WHEN TO CALL 911. Goal Provider Goal - OT STG: PATIENT WILL COMPLETE SHOWER/BATHING TASKS WITH MOD A WITHIN 2 WEEKS OT LTG: PATIENT WILL DEMONSTRATE IMPROVED ABILITY TO PERFORM BATHING/SHOWERING FROM MAX A TO INDEPENDENT WITHIN 8 WEEKS OT STG: PATIENT WILL COMPLETE SHOWER TRANSFERS WITH MIN A WITHIN 2 WEEKS OT LTG: PATIENT WILL DEMONSTRATE IMPROVED ABILITY TO PERFORM BATH/SHOWER TRANSFER FROM MOD A TO INDEPENDENT WITHIN 8 WEEKS OT STG: PATIENT WILL COMPLETE TOJLETING TASKS WITH MOD A WITHIN 2 WEEKS OT LTG: PATIENT WILL DEMONSTRATE IMPROVED ABILITY TO PERFORM TOILET HYGIENE FROM MAX A TO INDEPENDENT WITHIN 8 WEEKS OT STG: PATIENT WILLCOMPLETE TOILET TRANSFERS WITH MIN A WITHIN 2 WEEKS OT LTG: PATIENT WILL DEMONSTRATE IMPROVED ABILITY TO PERFORM TOILET TRANSFER FROM MOD A TO INDEPENDENT WITHIN 8 WEEKS OT STG: PATIENT WILL COMPLETE UB DRESSING TASKS WITH MOD A WITHIN 2 WEEKS OT LTG: PATIENT WILL DEMONSTRATE IMPROVED ABILITY TO PERFORM UPPER BODY DRESSING INCLUDING ITEM RETRIEVAL FROM MAX A TO INDEPENDENT WITHIN 8 WEEKS OT STG: PATIENT WILLCOMPLETE LB DRESSING TASKS WITH MOD A WITHIN 2WEEKZ OT LTG: PATIENT WILL DEMONSTRATE IMPROVED ABILITY TO PERFORM LOWER BODY DRESSING INCLUDING ITEM RETRIEVAL FROM MAX A TO INDEPENDENT WITHIN 8 WEEKS OT STG: PATIENT WILL DEMONSTRATE IMPROVEX MBI SCORE OF 76 WITHIN 2 WEEKS. OT LTG: PATIENT WILL DEMONSTRATE IMPROVED INDEPENDENCE WITH ACTIVITIES OF DAILY LIVING (ADL) SKILLS EVIDENCED BY AN IMPROVEMENT IN MODIFIED NEIL INDEX SCORE FROM 53 TO 100 INDICATING DECREASED DEPENDENCY ON CAREGIVER ASSISTANCE WITHIN 8 WEEKS OT STG: PATIENT WILL DEMONSTRATE ABILITY TO COMPLETE SIMPLE MEAL PREP WITH MOD A WITHIN 2 WEEKS OT LTG: PATIENT WILL DEMONSTRATE THE ABILITY TO COMPLETE MEAL PREPARATION AND CLEANUP FROM MAX A TO MIN A WITHIN 8 WEEKS Reason for Visit INDEPENDENT IN THE COMMUNITY Encounters Start Date/Time End Date/Time Encounter Type Admission Type Attending [facility] Care Department Encounter ID Discharge Date Discharge Status Discharge Condition Discharge Reason Percent Goals Met 2021-03-27 00:00:00 2021-05-08 00:00:00 Outpatient NEW ADMISSION COYNEMICHAEL CABRERA [facility] [id number] 2021-05-08 00:00:00 DISCHARGE TO HOME OR SELF CARE INDEPENDEN T IN THE COMMUNITY HH OR PAL- GOALS MET 93.75
--- OUTSIDE RECORDS SUMMARY | 2024-06-02 22:55 | XMS_ITS | Data Portability ---
Author Organization [facility] [place], [employer] Address [address] [place] [address] [place] [address] Care Team Providers Care Timber Feller Name Role Phone COLEMAN SUÁREZ Referring Provider Unavailab le COLEMAN SUÁREZ Primary Care Provider Assessment Encounter Date Assessment Date Assessment LastModified by Organization Details LastModified Time 09/08/2020 09/08/2020 IMPRESSION: Restless leg syndrome. Worsening gait imbalance but without falls. Concern about augmentation of RLS symptoms from levodopa. Augmentation is a well-known phenomenon with levodopa and restless leg syndrome where the restlessness symptoms become more severe and began occurring earlier in the day with protracted usage of levodopa. Symptoms may also extend to previously not involved limbs. The patient wondered if augmentation was inevitable from levodopa usage. She wondered if it was reversible. I did not know. After she left I researched the issue. There is a 2006 article by a respected expert in movement disorders, Medardo Manriquez. (https://www.ct bi.nlm.nih.gov/ pmc/articles/PM N9684295/) He reports that there are ? estimates? that augmentation eventually occurs with levodopa treatment in over 80% of patients in his experience, augmentation resolves within a week after his continuing the associated medication but reappears with reintroduction, sometimes more quickly than it appeared initially. He also notes that augmentation is not solely a property of levodopa as it had originally been thought but also happens with dopamine agonist such as ropinirole. He suggests that rotation among medications is the best way to handle this. He states that (in 2006) there are no good estimates on the time duration necessary during a rotation before going back to the original offending medication for there to be a chance that augmentation does not immediately reappear. He states that 3 months ? drug holiday? is what he uses with his patient population. A more recent article suggests that gradual withdrawal rather than sudden withdrawal of medication associated with augmentation is better tolerated (https://www.[facility].nlm.nih.gov/ pmc/articles/PM A9326343/) Before I had this knowledge, I suggested that we add a new medication, pramipexole extended release formulation for different reasons then the rotation reasons discussed above. There is some thought in the literature that pramipexole extended release has less tiredness side effect. She notes that she has had gastric bypass and has been told that extended release formulations in general do not work as extended release after gastric bypass of the type that she has had. The medications tend to work as immediate release. We decided on a trial of pramipexole extended release nevertheless. At follow-up I will introduce the idea of drug rotation more generally. We also discussed the alternatives to levodopa and dopamine agonists: Gabapentin, clonazepam and opiates. She would not want an opiate. We discussed that both gabapentin and clonazepam could have tiredness and that gabapentin at least and possibly clonazepam could worsened gait instability. [email or web address] Not available 09/08/2020 20:00:53 Plan of Treatment Reminders Order Date Submit Date Provider Last Modified By Organization Details Last Modified Time Details Appointments None recorded. Lab None recorded. Referral None recorded. Procedures None recorded. Surgeries None recorded. Imaging None recorded. Medication Orders pramipexole ER 0.75 mg tablet,exte nded release 24 hr 2020 021 [facility]/Pharmacy #[id number], [address] [place] [address], [place], [address], 13:17:06 Patient TargetsNo targets recorded. Patient Instructions Encounter Date Encounter Id Patient Instructions Last Modified By Organization Details Last Modified Time 09/08/2020 [id number] She had previously wanted to follow-up in the office he causes of gait imbalance. She has subsequently changed her mind and states she just wants to follow-up by telemedicine in the near future. Given the continuing coronavirus epidemic I cannot disagree. There remain no signs of Parkinsons disease on her telemedicine exam and there have been no signs of parkinsonism on previous in office neurological exams. She has history of iron deficiency, on iron replacement. Ferritin is normal July 2018. I defer to primary care for any future monitoring of iron that may be indicated. mic Not available 09/08/2020 19:59:03 Reason for Referral None Reported. Medical Equipment None Reported. Medications Name Sig Start Date Stop Date Status Note LastModified by Organization Details LastModified Time amoxicillin 500 mg capsule TAKE 4 CAPSULES BY MOUTH 1 HOUR PRIOR TO DENTAL APPOINTMENT active Not Available Not Available Not Available metformin 500 mg tablet TAKE 1 TABLET BY MOUTH TWICE A DAY WITH MEALS active Not Available Not Available No t Available bupropion HCl SR 150 mg tablet,12 hr sustained-re lease TAKE 1 TABLET BY MOUTH TWICE A DAY active Not Available Not Available No t Available ropinirole 1 mg tablet TAKE 2 TABLETS BY MOUTH AT BEDTIME, AND A THIRD IF NEEDED active Not Available Not Available No t Available atorvastatin 10 mg tablet TAKE 1 TABLET BY MOUTH EVERY DAY active Not Available Not Available No t Available urea 20 % topical cream APPLY 1 APPLICATION NEEDED TO THE RIGHT HEEL ONCE A DAY active Not Available Not Available N ot Available FreeStyle Lancets 28 gauge USE TO TEST BLOOD SUGAR TWICE A DAY active Not Available Not Available Not Available lorazepam 0.5 mg tablet TAKE 1 2 TABLETS BY MOUTH 30 MINUTES PRIOR TO PROCEDURE active Not Available Not Available No t Available doxycycline monohydrate 100 mg capsule active Not Available Not Available Not Available pantoprazole 40 mg tablet,delay ed release TAKE 1 TABLET BY MOUTH TWICE A DAY active Not Available Not Available No t Available hyoscyamine sulfate 0.125 mg tablet TAKE 4 TABS DIRECTED X 1 DAY BRING TO RADIOLOOGY EXAM *N/C active Not Available Not Available No t Available hyoscyamine 0.125 mg sublingual tablet TAKE 2 4 TABLETS BY MOUTH PER RADIOLOGY PROTOCOL active Not Available Not Available No t Available gabapentin 100 mg capsule active Not Available Not Available Not Available albuterol sulfate HFA 90 mcg/actuatio n aerosol inhaler TAKE 2 PUFFS BY MOUTH EVERY 6 HOURS NEEDED FOR WHEEZE active Not Available Not Available No t Available carbidopa 25 mg-levodopa 100 mg tablet TAKE 1/2 TAB 9AM X1WEEK, 1TAB 9AM X1WEEK, 1 TAB 9AM 1/2TAB 5PM X1WEEK, THEN 1TAB 9AM 1 5PM active Not Available Not Available No t Available repaglinide 1 mg tablet TAKE 1 2 TABLETS BY MOUTH EVERY DAY WITH EVENING MEAL active Not Available Not Available No t Available escitalopram 10 mg tablet TAKE 1 TABLET BY MOUTH TWICE A DAY active Not Available Not Available No t Available cyclobenzapr ine 5 mg tablet TAKE 1 TABLET (5 MG TOTAL) BY MOUTH NIGHTLY AT BEDTIME NEEDED. active Not Available Not Available No t Available hydrocodone 5 mg-acetamino phen 300 mg tablet TAKE 1 TABLET BY MOUTH EVERY 12 HOURS FOR PAIN *NOT COVERED* active Not Available Not Available No t Available FreeStyle Lite Strips USE ONE STRIP TO TEST BLOOD SUGAR ONE TO TWO TIMES DAILY DIRECTED active Not Available Not Available Not Available Lantus Solostar U-100 Insulin 100 unit/mL (3 mL) subcutaneous pen INJECT 7 UNITS UNDER THE SKIN DAILY. active Not Available Not Available No t Available pramipexole ER 0.75 mg tablet,exten ded release 24 hr 1 tablet 7 PM. May take a second tablet noon time if the 7 PM tablet does not make you tired 2020 active Not Available Not Available Not Avai lable BD Ultra-Fine Maylin Pen Needle 32 gauge x 5/32 USE ONCE DAILY DIRECTED active Not Available Not Available No t Available Baqsimi 3 mg/actuation nasal spray USE DIRECTED FOR SEVERE HYPOGLYCEMI A active Not Available Not Available No t Available Vitals None Recorded Social History None recorded. Functional Status None recorded. Mental Status None recorded. Family History Nothing Reported. Medical History No medical history recorded. Gynecological HistoryNo gynecological history recorded. Obstetrics History GPAL:G 0 P 0 0 0 0 Past Encounters Encounter ID Performer Location Encounter Start Date Encounter Closed Date Diagnosis/Indication Diagnosis SNOMED-CT Code Diagnosis ICD10 Code Diagnosis Note [id number] Isak Collazo MD [facility] [address] [place] [address] [place] [address] 09/08/2020 12:37:24 09/12/2020 15:51:44 Restless legs 25210591 G25.81 We are making only one change: Addition of pramipexol e ER 0.75 mg at 7 PM, and if there is no tiredness, an additional dose at noontime. This medication is at your pharmacy. For restless leg syndrome, carbidopa/ levodopa dosing as follows: 9 AM 1 tablet, 5 PM 1 tablet ropinirole 1 mg tablet dosing as follows: (NEW since July 2020) 11 AM: One half tablet together with a cup of coffee 5 PM: One half tablet together with a cup of coffee 15 minutes before afrryme27- midnight: 2 full tablets Middle of the night as needed: One full tablet If you are on your feet most of the day and not anticipati ng sitting down, it is just fine to skip the ropinirole at 11 AM. If you are on your feet during the evening all the way until bedtime, it is just fine to skip the 5 PM ropinirole . Follow-up in 1 month, in the office for reassessme nt context worsening restless legs Abnormal gait 96487646 R 26.81 Health Concerns Section Related Observation LastModified by Organization Detai ls LastModified Time None Recorded Concern Status LastModified by Organization Details LastModified Time None Recorded Advance Directives Directive None Recorded Payers Encounter Date Sequence Insurance Name Policy Number Policy Pantoja Covered Member ID Pantoja Member ID Guarantor Name 09/08/2020 1 [place]ICARE [place]: [employer] Tiarra Salcedo [id number] Tiarra Salcedo 09/08/2020 2 [facility] (MEDICARE SUPPLEMENT) Tiarra Salcedo [id number] Tiarra Salcedo Notes Date Note Type Note Provider Name and Address Organization Details Recorded Time 09/08/2020 text/html Since August 09, 2020 neurology follow-up encounter, she has added an extra half tablet of ropinirole 1 mg at 11 AM with a cup of coffee. She does not like the idea of a cup of coffee solving the problem of the tiredness with ropinirole. She continues to have breakthrough restless legs with sitting starting 11 AM-1 PM lasting until her 5 PM carbidopa/levodopa dose. She often just keeps moving and avoid sitting but if she has to sit she takes an extra half dose of carbidopa/levodopa. She again has breakthrough in the evening starting ~7:30 PM until bedtime, sometime 10 PM-midnight. When it is too intense, she takes an extra half ropinirole dose. She is very apprehensive about the potential of augmentation effect of carbidopa levodopa. She reports no falls. Presenting symptomatology is reviewed from initial neurology consultation October 24, 2017: Many years ago, she began having abnormal sensations in her lower extremities, a restless feeling in her knees and ankles like I wanted to punch. Them, which would come on later in the day if she were sitting or lying down and get better with walking. She also had jerking of her legs. Jeff his leg syndrome was diagnosed and ropinirole helped for many years, 0.5 mg tablets, 3-4 tablets 2 hours before bedtime, without side effects. She noticed at some point afterwards, she noticed similar symptoms earlier in the day if she was on a long car ride or at a conference sitting for a long time. This was adequately addressed by 1 or 2 tablets over ropinirole 0.5 mg. Sometime later, but still in the early , she had sleep study when restless legs syndrome was diagnosed. (she wonders how one can do that when she is sleeping. The precise diagnosis of abnormal leg movements when sleeping his periodic leg movements of sleep but this is thought very closely related to restless leg syndrome before waking. Both are treated with the same medications.) More recently, 4 tablets of her farm advisor in the evening and/or 2 tablets during the day stopped working. Primary care tried pramipexole and this didnt help. She is scared to go higher on the ropinirole leading to neurology consultation. She has had no problems with walkingaside from history or problems relating to right total hip replacement and more recent left hip bursitis that is being treated medically. She has no problems with stiffness, tremor or fine movements of her fingers her feet. Isak Collazo MD [address] [place] [address] [place], [address], [facility] 09/08/2020 20:02:31 OBGyn Episode No OBEpisode recorded.
--- OUTSIDE RECORDS SUMMARY | 2024-06-02 22:55 | XMS_ITS | Patient Health Record ---
Author Organization [facility] Address [address] [facility] [address] [place] [place] [address] Care Team Providers Care Public Health Nutritionist Name Role Phone [place] Primary Care Provider Unavailabl e Allergies Allergen (clinical drug ingredient) Drug/Non Drug Allergy documented on EMR Reaction Allergy Type Onset Date Status codeine Codeine Sulfate Unknown Drug Allergy A ctive Reason For Referral No Information Medications Medication SIG (Take, Route, Frequency, Duration) Notes Start Date End Date Status Doxycycline Monohydrate 100 MG 1 tablet Orally twice a day for 10 days 01/04/2023 Active Diclofenac Sodium 1 % 1 gm to the left 3 rd toe and plantar heels Externally two to four times a day for 30 days 01/04/2023 Active Lantus 100 UNIT/ML as directed Subcutaneous 18 units qhs Active Multivitamin Active Doxycycline Monohydrate 100 MG 1 tablet Orally Twice a day for 14 days 01/13/2021 Not-Taking metFORMIN HCl 500 MG 1 tablet with a eyad l Orally bid Active ZyrTEC Allergy 10 MG 1 tablet Orally Onc e a day Active buPROPion HCl ER (XL) 150 MG 1 tablet in the morning Orally bid Active Gabapentin 800 MG 1 tablet Orally Once a day 900MG Active Atorvastatin Calcium 10 MG 1 tablet Orally Once a day Active Aquaphor - apply to cracks on heels Externally one to two times a day for 30 days 01/04/2023 Active Lexapro 10 MG 1 tablet Orally bid Active Vitamin D3 50 MCG (1999 UT) 1 tablet Orally Once a day Active rOPINIRole HCl 1 MG 1 tablet 1 to 3 hours before bedtime Orally 2 tab at night Active Urea 20 % 1 application as needed to the right heel Externally Once a day for 30 days 10/04/2020 Not-Taking Pantoprazole Sodium 40 MG 1 tablet Orally Twice a day Active Lidocaine 4 % 1 application as needed Externally Three times a day for 14 days 10/12/2020 Not-Taking LORazepam Active Aspirin 81 MG 1 tablet Orally Once a day Active rOPINIRole HCl ER 2 MG 1 tablet Orally Once a day Active Carbidopa-Levodopa 25-100 MG 1 tablet Orally Once a day Not-Taking Problems Problem Type SNOMED Code ICD Code Onset Dates Problem Status W/U Status Risk Notes Problem [id number] Type 2 diabetes mellitus with other diabetic neurological complication (E11.49) Active confirmed Problem [id number] 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 [address] [place] [address] [id number] Tiarra Salcedo Self - patient is the insured Medical (General) History Medical History History ICD Code anxiety Controlled type 2 diabetes m ellitus with mild nonproliferative retinopathy of left eye with long-term current use of insulin GERD Right hip replacement Gastric bypass Restless leg syndrome Smoker Melanoma Major depressive disorder recurrent epis ode with anxious distress osteopenia of left forearm Hyperlidemia associated with type 2 diab etes mellitus Centrilobular emphysema + COVID 04/2022 COVID vaccinated X 4 (Ember) Surgical History Surgery Date(Month/Year) gastric bypass- no NSAIDS back surgery right shoulder surgery gallbladder sugery carpal tunnel surgery right hip replacement left achilles tendon repair neck fusion Hospitalization History Reason Date(Month/Year) cholecystectomy right hip replacement back surgery gastric bypass vaginal delivery (girl) 1989 (boy) 1987
== END ==
LOC: HO.SL 20:30
PROVIDERS: PCP Internal Medicine; Visit Provider Psychiatry & Neurology Neurology
DX: G47.10 Hypersomnia, unspecified (principal); R06.83 Snoring
CPT/HCPCS: 95810

== ENCOUNTER → 2024-06-02 22:44 | Outpatient (BNV) | payer MEDICARE, OTHER, SELFPAY | PROVIDERS: PCP Internal Medicine; Visit Provider Psychiatry & Neurology Neurology | DX: G47.10 Hypersomnia, unspecified (principal); R06.83 Snoring | CPT/HCPCS: 95810 ==

== ENCOUNTER 2024-11-04 10:53 | Outpatient (AMB) | payer MEDICARE, OTHER, SELFPAY ==
--- NOTE | 2024-11-04 11:08 | MHC.OFFVIS ---
Vital Signs 11/04/24 11:09 Height 5 ft 3 in Weight 114 lb BMI 20.2 BP 110/68 Blood Pressure Location Rt brachial Position Sitting Intake Visit Reasons: Follow up Intake Note: Patient presents for restless leg syndrome Allergies No Known Allergies Allergy (Verified 11/04/24 11:10) Medication List - Last Reconciled 11/04/24 by Alize Rios MD aspirin 81 mg PO DAILY atorvastatin 40 mg PO DAILY PRN bupropion HCl SR (Wellbutrin SR) 150 mg PO Q12H clopidogrel 75 mg PO DAILY escitalopram oxalate 20 mg PO ONCE ferrous fumarate (Ferretts) 325 mg PO DAILY gabapentin 300 mg PO BEDTIME hyoscyamine sulfate (Levsin/SL) 0.125 mg sublingual insulin glargine (Lantus U-100 Insulin) 100 units subcut QAM insulin glargine U-300 conc (Toujeo SoloStar U-300 Insulin) units subcut metformin 500 mg PO BID pantoprazole 40 mg PO BID repaglinide 0 mg PO ropinirole 0.5 mg PO BID 90 days umeclidinium-vilanterol 62.5-25 mcg/actuation (Anoro Ellipta) 1 ea inhalation DAILY HPI Comments Details: 74y/o female patient presents for follow up of RLS.she stopped carbidopa /levodopa and changed Requip 0.5mg qam and qnoon 1 mg qhs , gabapentin ( 100mg qam qnoon 3 tabs qhs )she stopped lorazepam . she had a fall Jun 2024 - slipped on the ice .Fractured her femur and right hip. Denies hypersomnolence during daytime [facility] Medical History Hypersomnia Snoring Falls frequently Cervicalgia Restless legs syndrome Periodic limb movement Back pain Hyperlipidemia Diabetes Depression COPD (chronic obstructive pulmonary disease) Surgical History History of colon resection H/O angioplasty H/O laminectomy History of carpal tunnel surgery H/O shoulder surgery History of back surgery History of cholecystectomy Family History Father Cancer Mother Cancer Social History Alcohol intake: current Alcohol intake frequency: holidays/special occasions only Patient Tobacco Use Status: Former Tobacco user Substance Use Type: Marijuana Review of Systems ENT Reports Normal hearing present Neuro Reports Normal hearing present Physical Exam Vital Signs: Last Vital Signs BP 110/68 11/04/24 11:09 BMI result Body Mass Index 20.2 Const General: cooperative and no acute distress Nutritional Appearance: average body habitus Orientation/consciousness: patient oriented x3 Limitations: ambulation with cane Resp Effort & Inspection: normal respiratory effort and able to speak in complete sentences Neuro General: patient oriented x3 and moves all extremities Cranial nerves: Yes Normal hearing present and Yes Ability to bilaterally rotate head present Cognition (Neuro): normal cognition Gait exam (Neuro): Antalgic gait present and Assistive device used (pt uses cane) Motor exam (neuro): 5/5 motor strength present throughout Psych Appearance: grossly normal Mental Status: mental status grossly normal Assessment & Plan Assessment & Plan (1) Restless legs syndrome: Code(s): G25.81 - Restless legs syndrome Category: Medical (2) Periodic limb movement: Code(s): G47.61 - Periodic limb movement disorder Category: Medical Plan ropinirole 0.5 mg qam and q noon add extra dose in even as needed 1mg qhs gabapentin 100 mg qam qnoon 3 tabs qhs Medications: New ropinirole 1 qam 1 qnoon 1 in juan jose as needed 0.5 mg PO TID 270 tabs 6RF ropinirole administer 1-3 hours before bedtime 1 mg PO BEDTIME 90 tabs 6RF Discontinued ropinirole Discontinued Reason: Doctor's Order 0.5 mg PO BID 90 days 180 tabs 3RF Coding Level of Care Code Est Pt Level 4 (63496) Complex EM visit Add On G2211 Diagnoses Restless legs syndrome G25.81 Periodic limb movement G47.61
[2024-11-04 11:09] VITALS: BP 110/68; BMI 20.2
--- OUTSIDE RECORDS SUMMARY | 2024-11-04 12:23 | XMS_ITS | Encounter Summary ---
Author Organization [facility] Address [address] [place] [address] Care Team Providers Care Preschool Program Director Name Role Phone Blayne Alexandra Primary Care Provider [phone] Encounter Details Date Type Department Care Team (Late st Contact Info) Description 08/29/2020 Orders Only [facility] Interventional Radiology [address] [place] [address] Nerissa Manuel MD [address] [place] [address] [phone] Social History Tobacco Use Types Packs/Day Years Used Date Smoking Tobacco: Former Cigarettes 0.8 45 0 06/24/1975 - 06/24/2020 Smokeless Tobacco: Never Comments:max was 2ppd. perio ds of quitting Alcohol Use Standard Drinks/Week Comments Not Currently 0 (1 standard drink = 0.6 oz pur e alcohol) Comments Unknown Sex and Gender Information Value Date Recorded Sex Assigned at Female 08/03/2020 8:00 AM EST Legal Sex Female 12:44 PM EST Gender Identity Female 08/03/2020 8:00 AM EST Sexual Orientation Straight 08/03/2020 8: 00 AM EST documented as of this encounter Plan of Treatment Not on file documented as of this encounter Visit Diagnoses Not on filedocumented in this encounter Care Teams Preschool Program Director Relationship Specialty Start Date End Date Blayne Alexandra [address] [place] [address] PCP - General 08/03/20 documented as of this encounter
== END 2024-11-04 11:35 | disposition home or self-care (01) ==
LOC: HO.HSMS 10:54
PROVIDERS: PCP Internal Medicine; Visit Provider Psychiatry & Neurology Neurology
DX: G25.81 Restless legs syndrome (principal); G47.61 Periodic limb movement disorder
CPT/HCPCS: 99214; G2211

== ENCOUNTER → 2024-11-04 10:53 | Outpatient (BNVA) | payer MEDICARE, OTHER, SELFPAY | PROVIDERS: PCP Internal Medicine; Visit Provider Psychiatry & Neurology Neurology | DX: G25.81 Restless legs syndrome (principal); G47.61 Periodic limb movement disorder | CPT/HCPCS: 99212 ==

== ENCOUNTER 2025-05-10 08:49 | Outpatient (AMB) | payer MEDICARE, OTHER, SELFPAY ==
--- NOTE | 2025-05-10 08:53 | A.OFFVIS_ITS ---
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 Accompanied by: Spouse Allergies No Known Allergies Allergy (Verified 05/10/25 08:54) Medication List - Last Reconciled 05/10/25 by Alize Rios MD amoxicillin 1,000 mg PO Q12H aspirin 81 mg PO DAILY atorvastatin 40 mg PO DAILY PRN bupropion HCl SR (Wellbutrin SR) 150 mg PO Q12H calcium phosphate-vitamin D3 250 mg calcium- 250 unit tabs PO carvedilol 3.125 mg PO BID cetirizine (Allergy Relief (cetirizine)) 10 mg PO DAILY PRN cholecalciferol (vitamin D3) mcg PO escitalopram oxalate 20 mg PO ONCE ferrous fumarate (Ferretts) 325 mg PO DAILY [id number] 100-62.5-25 mcg (Trelegy Ellipta) 1 inh inhalation Q24H gabapentin 300 mg PO BEDTIME gabapentin 300 mg PO TID insulin glargine (Lantus U-100 Insulin) 100 units subcut QAM insulin glargine U-300 conc (Toujeo SoloStar U-300 Insulin) units subcut mecobalamin (vitamin B12) 1,000 mcg PO DAILY melatonin 3 mg PO BEDTIME PRN metformin 500 mg PO BID multivitamin 1 tab PO DAILY pantoprazole 40 mg PO BID repaglinide 0 mg PO rivaroxaban (Xarelto) 2.5 mg PO BID ropinirole 1 mg PO BEDTIME ropinirole 0.5 mg PO TID sacubitril-valsartan 24-26 mg (Entresto) 1 tab PO BID HPI Comments Details: 74y/o female patient presents for follow up of RLS. Requip 0.5mg qam and qnoon 1 mg qhs , gabapentin ( 100mg qam 100 q evening qnoon 3 tabs qhs )she stopped lorazepam . she had a fall Jun 2024 -no falls since then Has daytime somnolence - takes 30 min naps some days she gets 6-7 hrs of sleep. [facility] Medical History Hypersomnia Snoring Falls frequently Cervicalgia Restless legs syndrome Periodic limb movement Back pain Hyperlipidemia Diabetes Depression COPD (chronic obstructive pulmonary disease) Surgical History History of colon resection H/O angioplasty H/O laminectomy History of carpal tunnel surgery H/O shoulder surgery History of back surgery History of cholecystectomy Family History Father Cancer Mother Cancer Social History Alcohol intake: current Alcohol intake frequency: holidays/special occasions only Patient Tobacco Use Status: Former Tobacco user Substance Use Type: Marijuana Review of Systems ENT Reports Normal hearing present Neuro Reports Normal hearing present Physical Exam Vital Signs: Last Vital Signs Pulse 54 05/10/25 08:54 BP 118/64 05/10/25 08:54 Pulse Ox 100 05/10/25 08:54 Oxygen Delivery Method Room Air 05/10/25 08:54 BMI result Body Mass Index 19.9 Const General: cooperative and no acute distress Nutritional Appearance: average body habitus Orientation/consciousness: patient oriented x3 Limitations: ambulation with cane Resp Effort & Inspection: normal respiratory effort and able to speak in complete sentences Neuro General: patient oriented x3 and moves all extremities Cranial nerves: Yes Normal hearing present and Yes Ability to bilaterally rotate head present Cognition (Neuro): normal cognition Gait exam (Neuro): Antalgic gait present Motor exam (neuro): 5/5 motor strength present throughout Psych Appearance: grossly normal Mental Status: mental status grossly normal Assessment & Plan Assessment & Plan (1) Restless legs syndrome: Code(s): G25.81 - Restless legs syndrome Category: Medical (2) Periodic limb movement: Code(s): G47.61 - Periodic limb movement disorder Category: Medical Plan ropinirole 0.5 mg qam and q noon add extra dose in even as needed 1mg qhs gabapentin 100 mg qam qnoon 3 tabs qhs Coding Level of Care Code Est Pt Level 4 (96938) Add On Problem Visit Only Diagnoses Restless legs syndrome G25.81 Periodic limb movement G47.61
[2025-05-10 08:54] VITALS: BP 118/64; PULSE 54; O2SAT 100; BMI 19.9
== END 2025-05-10 09:19 | disposition home or self-care (01) ==
LOC: HO.HSMS 08:50
PROVIDERS: PCP Internal Medicine; Visit Provider Psychiatry & Neurology Neurology
DX: G25.81 Restless legs syndrome (principal); G47.61 Periodic limb movement disorder
CPT/HCPCS: 99214; G2211

== ENCOUNTER → 2025-05-10 08:49 | Outpatient (BNVA) | payer MEDICARE, OTHER, SELFPAY | PROVIDERS: PCP Internal Medicine; Visit Provider Psychiatry & Neurology Neurology | DX: G25.81 Restless legs syndrome (principal); G47.61 Periodic limb movement disorder | CPT/HCPCS: 99212 ==